=== PATIENT | female | born 1945 | race African-American/Black ===

== ENCOUNTER 2018-07-29 08:33 | Inpatient (IN) | payer MEDICARE, MEDICAID ==
[~2018-07-29] VITALS: Ht 162.6 cm; Wt 73.9 kg
[2018-07-29] MEDS ORDERED: SODIUM CHLORIDE 0.9% 1,000 ML IV ONE ×2 (08:59→18:30)
[2018-07-29 09:54] LABS: BASOPHILS % 0.4 % (0.0-2.0); EOSINOPHILS % 0.2 % (0.0-5.0); HEMATOCRIT. 23.2 % (36.0-48.0); HEMOGLOBIN. 7.8 g/dL (12.0-16.0); LYMPHOCYTES % 15.5 % (20.0-50.0); MEAN CORPUSCULAR HEMOGLOBIN 30.1 pg (28.0-32.0); MEAN PLATELET VOLUME 8.2 fl (7.4-10.4); MONOCYTES % 4.6 % (2.0-8.0); NEUTROPHILS % 79.3 % (40.0-76.0); PLATELET 221 x1000/uL (130-400); RED CELL DISTRIBUTION WIDTH 14.4 % (11.6-14.6)
[2018-07-29 09:59] LABS: INR 1.1; PROTHROMBIN TIME 11.2 sec (9.1-11.1)
[2018-07-29 10:10] LABS: CHLORIDE 112 mEq/L (98-107)
[2018-07-29] MEDS ORDERED: ISOS20TA57 MT (15:35)
[2018-07-29] MEDS ORDERED: METF-414 MT (15:35)
[2018-07-29] MEDS ORDERED: ATOR40TA70 MT (15:35)
[2018-07-29 15:57] VITALS: BP 120/59
[2018-07-29 16:00] VITALS: BP_SYST 102; BP_SYST 110; BP_SYST 111; BP_DIAS 44; BP_DIAS 49; BP_DIAS 51
[2018-07-29] MEDS ORDERED: DEXTROSE 50% WATER 50ML SYRINGE IV PRN (16:45)
[2018-07-29] MEDS ORDERED: HEPARIN 5000 UNITS/ML VIAL SUBCUT SCH (17:00)
[2018-07-29] MEDS: BLOOD SUGAR DIAGNOSTIC STRIP TEST SCH ×2 (17:19→20:19)
[2018-07-29] MEDS: INSULIN LISPRO 100 UNITS/ML SUBCUT SCH ×2 (17:24→20:20)
[2018-07-29] MEDS ORDERED: ACETAMINOPHEN 325MG TABLET PO PRN (17:45)
[2018-07-29] MEDS: PANTOPRAZOLE 40MG DR TABLET PO SCH (18:51)
[2018-07-29 20:00] VITALS: BP_SYST 104; BP_SYST 105; BP_SYST 114; BP_DIAS 32; BP_DIAS 42; BP_DIAS 43
[2018-07-29] MEDS: ATORVASTATIN CALCIUM 40MG TABLET PO SCH (20:19)
[2018-07-29] MEDS: SODIUM CHLORIDE 0.9% INJ 3ML FLUSH IVF SCH (20:20)
[2018-07-29] MEDS: NITROGLYCERIN 0.4MG TABLET SL SL PRN (20:43)
[2018-07-29] MEDS: CEFTRIAXONE 1 G PREMIX 50 ML IV SCH (20:43)
[2018-07-29] MEDS ORDERED: MORPHINE SULFATE 10 MG/ML CPJ IV ONE (21:00)
[2018-07-29] MEDS: ONDANSETRON HCL 4MG/2ML INJ IV PRN (21:04)
[2018-07-29 23:16] LABS: HEMATOCRIT 20.2 % (36.0-48.0); HEMOGLOBIN 6.8 g/dL (12.0-16.0)
[2018-07-30] VITALS (14 sets, daily range): BP systolic 91–128; BP diastolic 48–84
[2018-07-30] MEDS: ONDANSETRON HCL 4MG/2ML INJ IV PRN (03:33)
[2018-07-30] MEDS: NITROGLYCERIN 0.4MG TABLET SL SL PRN (03:46)
[2018-07-30] MEDS: SODIUM CHLORIDE 0.9% INJ 3ML FLUSH IVF SCH ×3 (06:00→21:14)
[2018-07-30 06:30] LABS: BASOPHILS % 0.2 % (0.0-2.0); EOSINOPHILS % 0.2 % (0.0-5.0); LYMPHOCYTES % 12.6 % (20.0-50.0); MEAN CORPUSCULAR HEMOGLOBIN 31.3 pg (28.0-32.0); MEAN CORPUSCULAR VOLUME 89.8 fL (81.0-99.0); MEAN PLATELET VOLUME 8.8 fl (7.4-10.4); MONOCYTES % 6.1 % (2.0-8.0); NEUTROPHILS % 80.9 % (40.0-76.0); PLATELET 184 x1000/uL (130-400); RED BLOOD CELL COUNT 2.12 mill/uL (4.2-5.4); RED CELL DISTRIBUTION WIDTH 14.9 % (11.6-14.6)
[2018-07-30 06:42] LABS: HEMOGLOBIN. 6.6 g/dL (12.0-16.0)
[2018-07-30 07:32] LABS: FOLIC ACID (FOLATE) SERUM 7.2 ng/mL (>5.38)
[2018-07-30] MEDS: BLOOD SUGAR DIAGNOSTIC STRIP TEST SCH ×4 (07:40→21:14)
[2018-07-30] MEDS: INSULIN LISPRO 100 UNITS/ML SUBCUT SCH ×4 (08:08→21:00)
[2018-07-30] MEDS: ASPIRIN 81MG TABLET PO SCH (08:36)
[2018-07-30] MEDS: PANTOPRAZOLE 40MG DR TABLET PO SCH (10:02)
[2018-07-30 13:16] LABS: HEMATOCRIT 23.1 % (36.0-48.0); HEMOGLOBIN 7.9 g/dL (12.0-16.0)
[2018-07-30] MEDS: ATORVASTATIN CALCIUM 40MG TABLET PO SCH (21:13)
[2018-07-30] MEDS: CEFTRIAXONE 1 G PREMIX 50 ML IV SCH (21:13)
[2018-07-30 21:29] LABS: HEMATOCRIT 28.4 % (36.0-48.0); HEMOGLOBIN 9.5 g/dL (12.0-16.0)
[2018-07-31] VITALS (10 sets, daily range): BP systolic 121–148; BP diastolic 69–82
[2018-07-31] MEDS: METOPROLOL TARTRATE 25MG TABLET PO SCH ×3 (01:04→21:00)
[2018-07-31] MEDS: SODIUM CHLORIDE 0.9% INJ 3ML FLUSH IVF SCH ×2 (06:00→13:49)
[2018-07-31 06:17] LABS: BASOPHILS % 0.3 % (0.0-2.0); EOSINOPHILS % 0.3 % (0.0-5.0); HEMOGLOBIN. 9.9 g/dL (12.0-16.0); LYMPHOCYTES % 11.7 % (20.0-50.0); MEAN CORPUSCULAR HEMOGLOBIN 29.9 pg (28.0-32.0); MEAN CORPUSCULAR VOLUME 87.9 fL (81.0-99.0); MEAN PLATELET VOLUME 9.2 fl (7.4-10.4); MONOCYTES % 12.6 % (2.0-8.0); NEUTROPHILS % 75.1 % (40.0-76.0); PLATELET 148 x1000/uL (130-400); RED CELL DISTRIBUTION WIDTH 16.6 % (11.6-14.6)
[2018-07-31] MEDS ORDERED: NITROGLYCERIN 0.4MG TABLET SL SL PRN (07:15)
[2018-07-31] MEDS: INSULIN LISPRO 100 UNITS/ML SUBCUT SCH ×4 (07:20→21:00)
[2018-07-31] MEDS: BLOOD SUGAR DIAGNOSTIC STRIP TEST SCH ×4 (07:29→21:00)
[2018-07-31] MEDS ORDERED: ISOSORBIDE MONONITRATE 30MG TABLET SR 24HR PO SCH (09:00)
[2018-07-31] MEDS: FAMOTIDINE 20MG TABLET PO SCH (09:31)
[2018-07-31] MEDS: ASPIRIN 81MG TABLET PO SCH (09:32)
[2018-07-31] MEDS ORDERED: FUROSEMIDE 40MG/4ML VIAL IVP SCH (10:15)
[2018-07-31] MEDS: IPRATROPIUM/ALBUTEROL 0.5-3(2.5)MG/3ML NEB INH PRN ×2 (10:25→12:44)
[2018-07-31] MEDS: NITROGLYCERIN OINT 1GM/INCH UDPKT TD SCH (14:00)
[2018-08-01] VITALS (12 sets, daily range): BP systolic 107–141; BP diastolic 60–89
[2018-08-01] MEDS: ATORVASTATIN CALCIUM 40MG TABLET PO SCH ×2 (06:12→20:46)
[2018-08-01] MEDS: SODIUM CHLORIDE 0.9% INJ 3ML FLUSH IVF SCH ×4 (06:13→20:55)
[2018-08-01] MEDS: CEFTRIAXONE 1 G PREMIX 50 ML IV SCH ×2 (06:13→20:46)
[2018-08-01] MEDS: NITROGLYCERIN OINT 1GM/INCH UDPKT TD SCH ×4 (06:14→20:47)
[2018-08-01] MEDS: BLOOD SUGAR DIAGNOSTIC STRIP TEST SCH ×4 (06:15→20:47)
[2018-08-01] MEDS: INSULIN LISPRO 100 UNITS/ML SUBCUT SCH ×4 (06:34→20:49)
[2018-08-01 07:01] LABS: HEMATOCRIT. 28.1 % (36.0-48.0); HEMOGLOBIN. 9.4 g/dL (12.0-16.0); MEAN CORPUSCULAR HEMOGLOBIN 29.6 pg (28.0-32.0); MEAN CORPUSCULAR VOLUME 88.6 fL (81.0-99.0); MEAN PLATELET VOLUME 8.9 fl (7.4-10.4); PLATELET 147 x1000/uL (130-400); RED BLOOD CELL COUNT 3.17 mill/uL (4.2-5.4)
[2018-08-01] MEDS: ASPIRIN 81MG TABLET PO SCH (08:46)
[2018-08-01] MEDS: FAMOTIDINE 20MG TABLET PO SCH (08:47)
[2018-08-01] MEDS: FUROSEMIDE 40MG/4ML VIAL IVP SCH (08:47)
[2018-08-01] MEDS: METOPROLOL TARTRATE 25MG TABLET PO SCH ×2 (08:47→20:47)
[2018-08-01 08:58] LABS: BG BASE EXCESS -1.9 mmol/L (-2.0-2.0); BG CARBOXYHEMOGLOBIN 0.3 % (0.5-1.5); BG DEOXYHEMOGLOBIN 4.6 % (0.0-5.0); BG FRACTION INSPIRED OXYGEN 36; BG HCO3 ACT 21.4 mmol/L (22.0-26.0); BG METHEMOGLOBIN 0.3 % (0.0-1.5); BG OXYGEN SATURATION 95.4 % (92.0-98.5); BG OXYHEMOGLOBIN 94.8 % (94.0-97.0); BG PCO2 30.9 mmHg (35.0-45.0); BG PH 7.458 (7.350-7.450); BG PO2 81.3 mmHg (75.0-100.0); BG SAMPLE SITE RIGHT BRACHIAL; BG TOTAL HEMOGLOBIN 9.4 g/dL (12.0-18.0); BG VENT MODE NASAL CANNULA
[2018-08-01 10:07] LABS: ALBUMIN 2.7 g/dL (2.9-4.4); ALPHA-1-GLOBULIN 0.2 g/dL (0.0-0.4); ALPHA-2-GLOBULIN 0.6 g/dL (0.4-1.0); BETA GLOBULIN 0.9 g/dL (0.7-1.3); GLOBULIN TOTAL 2.8 g/dL (2.2-3.9); M-SPIKE Not Observed g/dL (Not Observed); TOTAL PROTEIN SERUM 5.5 g/dL (6.0-8.5)
[2018-08-01 13:29] LABS: PLATELET ESTIMATE NORMAL
[2018-08-02] VITALS (11 sets, daily range): BP systolic 118–157; BP diastolic 60–83
[2018-08-02] MEDS: SODIUM CHLORIDE 0.9% INJ 3ML FLUSH IVF SCH ×3 (05:52→22:24)
[2018-08-02] MEDS: NITROGLYCERIN OINT 1GM/INCH UDPKT TD SCH ×3 (05:52→22:25)
[2018-08-02] MEDS: BLOOD SUGAR DIAGNOSTIC STRIP TEST SCH ×4 (05:53→20:48)
[2018-08-02] MEDS: INSULIN LISPRO 100 UNITS/ML SUBCUT SCH ×4 (05:54→20:53)
[2018-08-02 07:13] LABS: BASOPHILS % 0.4 % (0.0-2.0); EOSINOPHILS % 2.1 % (0.0-5.0); HEMATOCRIT. 27.3 % (36.0-48.0); HEMOGLOBIN. 9.1 g/dL (12.0-16.0); LYMPHOCYTES % 16.7 % (20.0-50.0); MEAN CORPUSCULAR HEMOGLOBIN 29.7 pg (28.0-32.0); MEAN PLATELET VOLUME 9.3 fl (7.4-10.4); NEUTROPHILS % 66.8 % (40.0-76.0); PLATELET 147 x1000/uL (130-400); RED BLOOD CELL COUNT 3.07 mill/uL (4.2-5.4)
[2018-08-02 07:39] LABS: PHOSPHORUS 3.1 mg/dL (2.5-4.9)
[2018-08-02] MEDS: ASPIRIN 81MG TABLET PO SCH (08:31)
[2018-08-02] MEDS: METOPROLOL TARTRATE 25MG TABLET PO SCH ×2 (08:31→20:29)
[2018-08-02] MEDS: FUROSEMIDE 40MG/4ML VIAL IVP SCH (08:31)
[2018-08-02] MEDS: FAMOTIDINE 20MG TABLET PO SCH (08:31)
[2018-08-02] MEDS ORDERED: LIDOCAINE HCL 1% 20ML VIAL (Pyxis) INJ ONE (12:32)
[2018-08-02] MEDS ORDERED: IODIXANOL 320MG/ML 100 ML BOTTLE IV ONE (12:33)
[2018-08-02] MEDS ORDERED: MIDAZOLAM HCL 2 MG/2 ML VIAL ONE (12:37)
[2018-08-02] MEDS ORDERED: FENTANYL CITRATE/PF 50MCG/ML 2ML VIAL ONE (12:37)
[2018-08-02] MEDS ORDERED: POTASSIUM CHLORIDE 20MEQ TABLET SR PO NR (14:00)
[2018-08-02] MEDS ORDERED: NICARDIPINE 100MCG/ML 10ML VIAL (CATH LAB) IV ONE (14:56)
[2018-08-02] MEDS ORDERED: NITROGLYCERIN 50MCG/ML 10ML VIAL (CATH LAB) IV ONE (14:56)
[2018-08-02] MEDS ORDERED: HEPARIN SODIUM 1,000 UNIT/1ML VIAL IV ONE (15:07)
[2018-08-02] MEDS: ATORVASTATIN CALCIUM 40MG TABLET PO SCH (20:29)
[2018-08-02] MEDS: CEFTRIAXONE 1 G PREMIX 50 ML IV SCH (22:25)
[2018-08-03] VITALS (16 sets, daily range): BP systolic 111–148; BP diastolic 60–79
[2018-08-03] MEDS: NITROGLYCERIN OINT 1GM/INCH UDPKT TD SCH ×3 (06:10→23:16)
[2018-08-03] MEDS: SODIUM CHLORIDE 0.9% INJ 3ML FLUSH IVF SCH ×3 (06:10→22:00)
[2018-08-03] MEDS: BLOOD SUGAR DIAGNOSTIC STRIP TEST SCH ×4 (06:10→20:23)
[2018-08-03] MEDS: INSULIN LISPRO 100 UNITS/ML SUBCUT SCH ×4 (07:20→20:21)
[2018-08-03] MEDS ORDERED: IOHEXOL-300 100 ML BOTTLE ONE (08:04)
[2018-08-03] MEDS ORDERED: IODIXANOL 320MG/ML 200ML BOTTLE ONE (08:04)
[2018-08-03] MEDS ORDERED: LIDOCAINE HCL 1% 20ML VIAL (Pyxis) INJ ONE (08:04)
[2018-08-03 08:10] LABS: BASOPHILS % 0.4 % (0.0-2.0); EOSINOPHILS % 2.8 % (0.0-5.0); HEMATOCRIT. 34.8 % (36.0-48.0); HEMOGLOBIN. 11.7 g/dL (12.0-16.0); MEAN CORPUSCULAR HEMOGLOBIN 29.9 pg (28.0-32.0); MEAN CORPUSCULAR VOLUME 88.5 fL (81.0-99.0); MEAN PLATELET VOLUME 8.6 fl (7.4-10.4); MONOCYTES % 14.2 % (2.0-8.0); NEUTROPHILS % 70.6 % (40.0-76.0); PLATELET 156 x1000/uL (130-400); RED BLOOD CELL COUNT 3.93 mill/uL (4.2-5.4); RED CELL DISTRIBUTION WIDTH 15.9 % (11.6-14.6)
[2018-08-03 08:17] LABS: PHOSPHORUS 3.2 mg/dL (2.5-4.9)
[2018-08-03] MEDS: FUROSEMIDE 40MG/4ML VIAL IVP SCH (08:23)
[2018-08-03] MEDS: METOPROLOL TARTRATE 25MG TABLET PO SCH ×2 (08:24→20:23)
[2018-08-03] MEDS: ASPIRIN 81MG TABLET PO SCH (08:24)
[2018-08-03] MEDS: FAMOTIDINE 20MG TABLET PO SCH (08:24)
[2018-08-03] MEDS ORDERED: FENTANYL CITRATE/PF 50MCG/ML 2ML VIAL ONE (08:26)
[2018-08-03] MEDS ORDERED: MIDAZOLAM HCL 2 MG/2 ML VIAL ONE (08:26)
[2018-08-03] MEDS ORDERED: ASPIRIN 325MG TABLET ONE (10:42)
[2018-08-03] MEDS ORDERED: CLOPIDOGREL 75MG TABLET ONE (10:43)
[2018-08-03] MEDS ORDERED: ONDANSETRON HCL 4MG/2ML INJ IV PRN (10:45)
[2018-08-03] MEDS ORDERED: ACETAMINOPHEN 325MG TABLET PO PRN (10:45)
[2018-08-03] MEDS ORDERED: ATROPINE SULFATE 1MG/10ML SYR IV PRN (10:45)
[2018-08-03] MEDS ORDERED: HEPARIN SODIUM 1,000 UNIT/1ML VIAL IV ONE (15:07)
[2018-08-03] MEDS ORDERED: NITROGLYCERIN 50MCG/ML 10ML VIAL (CATH LAB) IV ONE (15:08)
[2018-08-03] MEDS ORDERED: NICARDIPINE 100MCG/ML 10ML VIAL (CATH LAB) IV ONE (15:08)
[2018-08-03] MEDS: DOCUSATE SODIUM 100MG CAPSULE PO PRN (17:44)
[2018-08-03] MEDS: ATORVASTATIN CALCIUM 40MG TABLET PO SCH (20:21)
[2018-08-03] MEDS: CEFTRIAXONE 1 G PREMIX 50 ML IV SCH (20:23)
[2018-08-03] MEDS ORDERED: SODIUM CHLORIDE 0.45% 1,000 ML IV ONE (21:00)
[2018-08-04] VITALS (10 sets, daily range): BP systolic 111–135; BP diastolic 60–74
[2018-08-04] MEDS: NITROGLYCERIN OINT 1GM/INCH UDPKT TD SCH ×2 (06:15→13:55)
[2018-08-04] MEDS: SODIUM CHLORIDE 0.9% INJ 3ML FLUSH IVF SCH ×2 (06:16→11:59)
[2018-08-04] MEDS: BLOOD SUGAR DIAGNOSTIC STRIP TEST SCH ×3 (06:16→16:50)
[2018-08-04] MEDS: INSULIN LISPRO 100 UNITS/ML SUBCUT SCH ×3 (06:59→17:04)
[2018-08-04] MEDS: FAMOTIDINE 20MG TABLET PO SCH (08:14)
[2018-08-04] MEDS: DOCUSATE SODIUM 100MG CAPSULE PO PRN (08:14)
[2018-08-04] MEDS: ASPIRIN 81MG TABLET PO SCH (08:14)
[2018-08-04] MEDS: FUROSEMIDE 40MG/4ML VIAL IVP SCH (08:14)
[2018-08-04] MEDS: METOPROLOL TARTRATE 25MG TABLET PO SCH (08:14)
[2018-08-04 08:25] LABS: BASOPHILS % 0.3 % (0.0-2.0); EOSINOPHILS % 2.3 % (0.0-5.0); HEMATOCRIT. 27.2 % (36.0-48.0); HEMOGLOBIN. 9.4 g/dL (12.0-16.0); LYMPHOCYTES % 11.4 % (20.0-50.0); MEAN CORPUSCULAR HEMOGLOBIN 30.1 pg (28.0-32.0); MEAN CORPUSCULAR VOLUME 87.7 fL (81.0-99.0); MEAN PLATELET VOLUME 8.8 fl (7.4-10.4); MONOCYTES % 12.9 % (2.0-8.0); NEUTROPHILS % 73.1 % (40.0-76.0); PLATELET 144 x1000/uL (130-400)
[2018-08-04 08:43] LABS: PHOSPHORUS 3.6 mg/dL (2.5-4.9)
[2018-08-04] MEDS ORDERED: CLOPIDOGREL 75MG TABLET PO SCH (08:45)
[2018-08-04] MEDS ORDERED: CARVEDILOL 3.125 MG TABLET PO SCH (09:00)
[2018-08-05] MEDS ORDERED: FUROSEMIDE 40MG TABLET PO SCH (09:00)
[2018-08-05] MEDS ORDERED: CLOPIDOGREL 75MG TABLET PO SCH (09:00)
== END 2018-08-04 17:45 | disposition home or self-care (01) | DRG 215 ==
LOC: ER 08:33 → 7WST 10:52 → ENRESERV 13:36 → 3WST 07-30 23:40
PROVIDERS: ADMIT Ophthalmology; ATTEND Ophthalmology
PROC: 30233N1 Transfusion of Nonautologous Red Blood Cells into Peripheral Vein, Percutaneous Approach (ICD-10-PCS; 2018-07-30)
PROC: 4A023N7 Measurement of Cardiac Sampling and Pressure, Left Heart, Percutaneous Approach (ICD-10-PCS; principal; 2018-08-02)
PROC: B211YZZ Fluoroscopy of Multiple Coronary Arteries using Other Contrast (ICD-10-PCS; 2018-08-02)
PROC: 02HA3RJ Insertion of Short-term External Heart Assist System into Heart, Intraoperative, Percutaneous Approach (ICD-10-PCS; 2018-08-03)
PROC: X2C0361 Extirpation of Matter from Coronary Artery, One Artery using Orbital Atherectomy Technology, Percutaneous Approach, New Technology Group 1 (ICD-10-PCS; 2018-08-03)
PROC: 027034Z Dilation of Coronary Artery, One Artery with Drug-eluting Intraluminal Device, Percutaneous Approach (ICD-10-PCS; 2018-08-03)
PROC: 5A0221D Assistance with Cardiac Output using Impeller Pump, Continuous (ICD-10-PCS; 2018-08-03)
PROC: B240ZZ3 Ultrasonography of Single Coronary Artery, Intravascular (ICD-10-PCS; 2018-08-03)
DX: I21.4 Non-ST elevation (NSTEMI) myocardial infarction (principal); I50.23 Acute on chronic systolic (congestive) heart failure; N17.9 Acute kidney failure, unspecified; E87.2 Acidosis; I13.0 Hypertensive heart and chronic kidney disease with heart failure and stage 1 through stage 4 chronic kidney disease, or unspecified chronic kidney disease; E78.5 Hyperlipidemia, unspecified; E87.6 Hypokalemia; I25.10 Atherosclerotic heart disease of native coronary artery without angina pectoris; E78.00 Pure hypercholesterolemia, unspecified; I48.0 Paroxysmal atrial fibrillation; I95.9 Hypotension, unspecified; D50.9 Iron deficiency anemia, unspecified; E11.22 Type 2 diabetes mellitus with diabetic chronic kidney disease; E86.1 Hypovolemia; F03.90 Unspecified dementia, unspecified severity, without behavioral disturbance, psychotic disturbance, mood disturbance, and anxiety; I25.5 Ischemic cardiomyopathy; I34.0 Nonrheumatic mitral (valve) insufficiency; R79.1 Abnormal coagulation profile; N18.3 Chronic kidney disease, stage 3 (moderate); D63.8 Anemia in other chronic diseases classified elsewhere; I25.2 Old myocardial infarction; Z79.4 Long term (current) use of insulin; Z79.82 Long term (current) use of aspirin; Z79.899 Other long term (current) drug therapy; Z88.0 Allergy status to penicillin; Z90.710 Acquired absence of both cervix and uterus; Z95.1 Presence of aortocoronary bypass graft; Z86.73 Personal history of transient ischemic attack (TIA), and cerebral infarction without residual deficits; Z79.02 Long term (current) use of antithrombotics/antiplatelets; Z95.5 Presence of coronary angioplasty implant and graft; Z98.49 Cataract extraction status, unspecified eye; Z82.49 Family history of ischemic heart disease and other diseases of the circulatory system; Z83.3 Family history of diabetes mellitus
CPT/HCPCS: 33990; 36415; 36600; 71045; 76770; 80048; 80061; 82270; 82375; 82550; 82607; 82728; 82746; 82805; 82962; 83036; 83540; 83550; 83605; 83735; 83880; 84100; 84155; 84165; 84443; 84484; 85014; 85018; 85347; 85379; 86850; 86900; 86920; 92933; 92978; 93005; 93306; 93454; 93458; 93970; 94640; 96360; 96361; 96372; 97162; 97166; 99285; C1725; C1726; C1753; C1760; C1769; C1874; C1887; C1893; J0696; J1644; J1815; J1940; J2250; J2405; J3010; J3490; J7030; J7040; J7050; J7060; J7620; P9016; P9021; Q9967

== ENCOUNTER 2018-08-14 06:01 | Inpatient (IN) | payer MEDICARE, MEDICAID ==
[~2018-08-14] VITALS: Ht 157.5 cm; Wt 72.7 kg
[2018-08-14] MEDS: IPRATROPIUM/ALBUTEROL 0.5-3(2.5)MG/3ML NEB HHN SCH (05:45)
[~2018-08-14 06:01] MED LIST: ATOR40TA70 MT; METF-414 MT
[2018-08-14] MEDS ORDERED: ALBUTEROL (0.083%) 2.5MG/3ML NEB HHN STA (06:15)
[2018-08-14] MEDS ORDERED: IPRATROPIUM BROMIDE (0.02%) 0.5MG/2.5ML NEB HHN STA (06:15)
[2018-08-14] MEDS ORDERED: METHYLPREDNISOLONE SOD SUCC 125 MG/2 ML VIAL IV ONE (06:30)
[2018-08-14] MEDS ORDERED: FUROSEMIDE 40MG/4ML VIAL IVP ONE (06:30)
[2018-08-14] MEDS ORDERED: LEVOFLOXACIN 500MG PREMIX 100 ML IV ONE (07:30)
[2018-08-14] MEDS ORDERED: VANCOMYCIN 1 G PREMIX 200 ML IV SCH (07:30)
[2018-08-14 07:59] LABS: CLARITY URINE CLEAR (CLEAR); COLOR URINE YELLOW (YELLOW); KETONES URINE NEGATIVE (NEGATIVE); LEUKOCYTE ESTERASE URINE NEGATIVE (NEGATIVE); NITRITE URINE NEGATIVE (NEGATIVE); OCCULT BLOOD URINE NEGATIVE (NEGATIVE); PH URINE 5.5 (4.5-8.0); PROTEIN URINE NEGATIVE (NEGATIVE); SPECIFIC GRAVITY URINE 1.008 (1.005-1.030); UROBILINOGEN URINE 0.2 E.U./dL (0.2-1.0)
[2018-08-14 08:26] LABS: BG BASE EXCESS -3.2 mmol/L (-2.0-2.0); BG BILEVEL POS AIRWAY PRESSURE ST=15/5; BG CARBOXYHEMOGLOBIN 0.6 % (0.5-1.5); BG FRACTION INSPIRED OXYGEN 35; BG HCO3 ACT 20.3 mmol/L (22.0-26.0); BG METHEMOGLOBIN 0.2 % (0.0-1.5); BG OXYGEN SATURATION 92.9 % (92.0-98.5); BG OXYHEMOGLOBIN 92.2 % (94.0-97.0); BG PCO2 31.2 mmHg (35.0-45.0); BG PH 7.431 (7.350-7.450); BG PO2 69.7 mmHg (75.0-100.0); BG PRESSURE SUPPORT 10; BG SAMPLE SITE RIGHT BRACHIAL; BG TOTAL HEMOGLOBIN 10.7 g/dL (12.0-18.0); BG VENT MODE MASK - BIPAP; BG VENT RATE 16 set
[2018-08-14 08:46] LABS: CHLORIDE 110 mEq/L (98-107)
[2018-08-14 08:48] LABS: INR 1.1; PROTHROMBIN TIME 11.4 sec (9.1-11.1)
[2018-08-14 08:51] LABS: BASOPHILS % 0.6 % (0.0-2.0); EOSINOPHILS % 1.8 % (0.0-5.0); HEMATOCRIT. 33.7 % (36.0-48.0); HEMOGLOBIN. 10.9 g/dL (12.0-16.0); LYMPHOCYTES % 10.7 % (20.0-50.0); MEAN CORPUSCULAR HEMOGLOBIN 30.2 pg (28.0-32.0); MEAN CORPUSCULAR VOLUME 93.3 fL (81.0-99.0); MEAN PLATELET VOLUME 8.2 fl (7.4-10.4); MONOCYTES % 7.9 % (2.0-8.0); PLATELET 338 x1000/uL (130-400); RED BLOOD CELL COUNT 3.61 mill/uL (4.2-5.4); RED CELL DISTRIBUTION WIDTH 19.5 % (11.6-14.6)
[2018-08-14 14:37] VITALS: BP 141/75
[2018-08-14] MEDS ORDERED: IPRATROPIUM/ALBUTEROL 0.5-3(2.5)MG/3ML NEB HHN PRN (16:00)
[2018-08-14] MEDS: METHYLPREDNISOLONE SOD SUCC 40 MG/ML VIAL IV SCH (17:12)
[2018-08-14] MEDS ORDERED: FAMO-135 MT (17:26)
[2018-08-14] MEDS ORDERED: ASA5EC MT (17:26)
[2018-08-14] MEDS ORDERED: ASCO-339 MT (17:26)
[2018-08-14] MEDS ORDERED: LIP40 MT (17:26)
[2018-08-14] MEDS ORDERED: FERR325T6 MT (17:26)
[2018-08-14] MEDS ORDERED: METF-414 MT (17:26)
[2018-08-14] MEDS ORDERED: ISOS20TA57 MT (17:26)
[2018-08-14] MEDS ORDERED: CLOP75TA16 MT (17:26)
[2018-08-14] MEDS ORDERED: AMLO2.5T2 MT (17:26)
[2018-08-14] MEDS ORDERED: ISOS30TA6 MT (17:26)
[2018-08-14] MEDS ORDERED: COR3 MT (17:26)
[2018-08-14] MEDS ORDERED: ATOR40TA70 MT (17:26)
[2018-08-14] MEDS ORDERED: PNEUMOCOCCAL 23-VAL P-SAC VAC 0.5 ML IM ONE (17:30)
[2018-08-14] MEDS ORDERED: INFLUENZA VIRUS VACCINE(AFLURIA) 0.5ML SYR IM ONE (17:30)
[2018-08-14] MEDS ORDERED: METO-539 MT (17:33)
[2018-08-14] MEDS ORDERED: FUROSEMIDE 100MG/10ML VIAL IVP NR (18:30)
[2018-08-14] MEDS: ASPIRIN 81MG TABLET PO SCH (19:05)
[2018-08-14] MEDS: CLOPIDOGREL 75MG TABLET PO SCH (19:05)
[2018-08-14] MEDS: ATORVASTATIN CALCIUM 40MG TABLET PO SCH (19:05)
[2018-08-14] MEDS: ISOSORBIDE MONONITRATE 60MG TABLET SR 24HR PO SCH (19:07)
[2018-08-14 20:00] VITALS: BP 132/67
[2018-08-14] MEDS: BLOOD SUGAR DIAGNOSTIC STRIP TEST SCH (21:12)
[2018-08-14] MEDS ORDERED: DEXTROSE 50% WATER 50ML SYRINGE IV PRN (21:15)
[2018-08-14] MEDS: INSULIN LISPRO 100 UNITS/ML SUBCUT SCH (21:30)
[2018-08-14] MEDS: SODIUM CHLORIDE 0.9% INJ 3ML FLUSH IVF SCH (21:31)
[2018-08-14 22:00] VITALS: BP 127/62
[2018-08-15] VITALS (11 sets, daily range): BP systolic 107–139; BP diastolic 51–83
[2018-08-15] MEDS: METHYLPREDNISOLONE SOD SUCC 40 MG/ML VIAL IV SCH ×3 (03:04→16:30)
[2018-08-15] MEDS: SODIUM CHLORIDE 0.9% INJ 3ML FLUSH IVF SCH ×3 (06:23→21:09)
[2018-08-15] MEDS: PANTOPRAZOLE 40MG DR TABLET PO SCH (06:24)
[2018-08-15] MEDS: FUROSEMIDE 40MG/4ML VIAL IVP SCH ×2 (06:47→17:42)
[2018-08-15] MEDS: BLOOD SUGAR DIAGNOSTIC STRIP TEST SCH ×4 (06:50→21:09)
[2018-08-15 06:58] LABS: HEMATOCRIT. 26.8 % (36.0-48.0); HEMOGLOBIN. 8.9 g/dL (12.0-16.0); MEAN CORPUSCULAR HEMOGLOBIN 30.7 pg (28.0-32.0); MEAN CORPUSCULAR VOLUME 92.4 fL (81.0-99.0); MEAN PLATELET VOLUME 8.3 fl (7.4-10.4); PLATELET 282 x1000/uL (130-400); RED CELL DISTRIBUTION WIDTH 18.6 % (11.6-14.6)
[2018-08-15] MEDS: INSULIN LISPRO 100 UNITS/ML SUBCUT SCH ×3 (07:13→17:42)
[2018-08-15] MEDS: CLOPIDOGREL 75MG TABLET PO SCH (08:29)
[2018-08-15] MEDS: ASPIRIN 81MG TABLET PO SCH (08:30)
[2018-08-15] MEDS: ISOSORBIDE MONONITRATE 60MG TABLET SR 24HR PO SCH (08:30)
[2018-08-15 08:58] LABS: BG BASE EXCESS -1.7 mmol/L (-2.0-2.0); BG CARBOXYHEMOGLOBIN 0.6 % (0.5-1.5); BG DEOXYHEMOGLOBIN 3.8 % (0.0-5.0); BG FRACTION INSPIRED OXYGEN 28; BG HCO3 ACT 21.6 mmol/L (22.0-26.0); BG METHEMOGLOBIN 0.3 % (0.0-1.5); BG OXYGEN SATURATION 96.2 % (92.0-98.5); BG OXYHEMOGLOBIN 95.3 % (94.0-97.0); BG PCO2 30.8 mmHg (35.0-45.0); BG PH 7.463 (7.350-7.450); BG SAMPLE SITE LEFT RADIAL; BG TOTAL HEMOGLOBIN 9.4 g/dL (12.0-18.0); BG VENT MODE NASAL CANNULA
[2018-08-15] MEDS ORDERED: ENOXAPARIN 40MG/0.4ML SYR SUBCUT SCH (09:00)
[2018-08-15] MEDS: IPRATROPIUM/ALBUTEROL 0.5-3(2.5)MG/3ML NEB HHN SCH ×5 (09:50→23:45)
[2018-08-15] MEDS ORDERED: INSULIN LISPRO 100 UNITS/ML SUBCUT NR ×2 (12:15→22:30)
[2018-08-15 16:08] LABS: PLATELET ESTIMATE NORMAL
[2018-08-15 16:58] LABS: HEMATOCRIT 26.7 % (36.0-48.0); HEMOGLOBIN 8.7 g/dL (12.0-16.0)
[2018-08-15] MEDS: ATORVASTATIN CALCIUM 40MG TABLET PO SCH (21:09)
[2018-08-15] MEDS ORDERED: INSULIN LISPRO 100 UNITS/ML SUBCUT ONE (22:00)
[2018-08-15] MEDS ORDERED: DEXTROSE 50% WATER 50ML SYRINGE IV PRN (22:00)
[2018-08-15] MEDS ORDERED: INSULIN GLARGINE UD 100 UNITS/ML SYR SUBCUT SCH (22:00)
[2018-08-15] MEDS: INSULIN GLARGINE UD 100 UNITS/ML SYR SUBCUT SCH (22:48)
[2018-08-16] VITALS (17 sets, daily range): BP systolic 121–155; BP diastolic 57–89
[2018-08-16] MEDS: METHYLPREDNISOLONE SOD SUCC 40 MG/ML VIAL IV SCH ×3 (00:38→17:20)
[2018-08-16] MEDS: IPRATROPIUM/ALBUTEROL 0.5-3(2.5)MG/3ML NEB HHN SCH ×3 (04:05→19:54)
[2018-08-16] MEDS: PANTOPRAZOLE 40MG DR TABLET PO SCH (06:14)
[2018-08-16] MEDS: FUROSEMIDE 40MG/4ML VIAL IVP SCH ×2 (06:14→17:20)
[2018-08-16] MEDS: BLOOD SUGAR DIAGNOSTIC STRIP TEST SCH ×4 (06:19→21:26)
[2018-08-16] MEDS: SODIUM CHLORIDE 0.9% INJ 3ML FLUSH IVF SCH ×3 (06:20→21:26)
[2018-08-16 06:27] LABS: HEMATOCRIT. 26.1 % (36.0-48.0); HEMOGLOBIN. 8.6 g/dL (12.0-16.0); MEAN CORPUSCULAR HEMOGLOBIN 30.3 pg (28.0-32.0); MEAN CORPUSCULAR VOLUME 92.2 fL (81.0-99.0); MEAN PLATELET VOLUME 8.1 fl (7.4-10.4); PLATELET 302 x1000/uL (130-400); RED BLOOD CELL COUNT 2.83 mill/uL (4.2-5.4); RED CELL DISTRIBUTION WIDTH 18.7 % (11.6-14.6)
[2018-08-16] MEDS ORDERED: BLOOD SUGAR DIAGNOSTIC STRIP TEST SCH (06:50)
[2018-08-16] MEDS: INSULIN LISPRO 100 UNITS/ML SUBCUT SCH ×4 (07:53→21:26)
[2018-08-16] MEDS: ASPIRIN 81MG TABLET PO SCH (08:19)
[2018-08-16] MEDS: ISOSORBIDE MONONITRATE 60MG TABLET SR 24HR PO SCH (08:19)
[2018-08-16] MEDS: CLOPIDOGREL 75MG TABLET PO SCH (08:19)
[2018-08-16] MEDS: INSULIN GLARGINE UD 100 UNITS/ML SYR SUBCUT SCH ×2 (10:05→22:02)
[2018-08-16] MEDS ORDERED: AMIODARONE HCL 900 MG in DEXT 5% WATER 482 ML IV SCH (10:15)
[2018-08-16] MEDS ORDERED: AMIODARONE HCL 150 MG in DEXT 5% WATER 100 ML IV NR (10:15)
[2018-08-16 12:12] LABS: PLATELET ESTIMATE NORMAL
[2018-08-16 19:54] LABS: CLARITY URINE CLEAR (CLEAR); COLOR URINE YELLOW (YELLOW); KETONES URINE NEGATIVE (NEGATIVE); LEUKOCYTE ESTERASE URINE NEGATIVE (NEGATIVE); NITRITE URINE NEGATIVE (NEGATIVE); OCCULT BLOOD URINE NEGATIVE (NEGATIVE); PROTEIN URINE NEGATIVE (NEGATIVE); UROBILINOGEN URINE 0.2 E.U./dL (0.2-1.0)
[2018-08-16] MEDS: ATORVASTATIN CALCIUM 40MG TABLET PO SCH (21:24)
[2018-08-17] VITALS (13 sets, daily range): BP systolic 117–172; BP diastolic 54–82
[2018-08-17] MEDS: IPRATROPIUM/ALBUTEROL 0.5-3(2.5)MG/3ML NEB HHN SCH ×6 (00:52→21:08)
[2018-08-17] MEDS: METHYLPREDNISOLONE SOD SUCC 40 MG/ML VIAL IV SCH ×2 (01:09→09:21)
[2018-08-17 05:46] LABS: HEMATOCRIT. 25.9 % (36.0-48.0); HEMOGLOBIN. 8.7 g/dL (12.0-16.0); MEAN CORPUSCULAR HEMOGLOBIN 30.7 pg (28.0-32.0); MEAN PLATELET VOLUME 8.2 fl (7.4-10.4); PLATELET 290 x1000/uL (130-400); RED BLOOD CELL COUNT 2.84 mill/uL (4.2-5.4); RED CELL DISTRIBUTION WIDTH 18.9 % (11.6-14.6)
[2018-08-17 05:59] LABS: CHLORIDE 101 mEq/L (98-107)
[2018-08-17] MEDS: FUROSEMIDE 40MG/4ML VIAL IVP SCH ×2 (06:12→17:18)
[2018-08-17] MEDS: PANTOPRAZOLE 40MG DR TABLET PO SCH (06:12)
[2018-08-17] MEDS: BLOOD SUGAR DIAGNOSTIC STRIP TEST SCH ×4 (06:13→21:01)
[2018-08-17] MEDS: SODIUM CHLORIDE 0.9% INJ 3ML FLUSH IVF SCH ×3 (06:13→21:02)
[2018-08-17] MEDS: ASPIRIN 81MG TABLET PO SCH (08:07)
[2018-08-17] MEDS: CLOPIDOGREL 75MG TABLET PO SCH (08:07)
[2018-08-17] MEDS: ISOSORBIDE MONONITRATE 60MG TABLET SR 24HR PO SCH (08:07)
[2018-08-17] MEDS: INSULIN LISPRO 100 UNITS/ML SUBCUT SCH ×4 (08:10→20:58)
[2018-08-17] MEDS: INSULIN GLARGINE UD 100 UNITS/ML SYR SUBCUT SCH ×2 (10:41→21:36)
[2018-08-17 12:36] LABS: PLATELET ESTIMATE NORMAL
[2018-08-17] MEDS: AMIODARONE HCL 200 MG TABLET PO SCH ×2 (13:46→20:56)
[2018-08-17] MEDS ORDERED: INSULIN LISPRO 100 UNITS/ML SUBCUT ONE (17:45)
[2018-08-17] MEDS ORDERED: INSULIN LISPRO 100 UNITS/ML SUBCUT NR (17:45)
[2018-08-17] MEDS: ATORVASTATIN CALCIUM 40MG TABLET PO SCH (20:56)
[2018-08-17] MEDS ORDERED: INSULIN GLARGINE UD 100 UNITS/ML SYR SUBCUT SCH (22:00)
[2018-08-18] VITALS (12 sets, daily range): BP systolic 115–151; BP diastolic 55–84
[2018-08-18] MEDS: IPRATROPIUM/ALBUTEROL 0.5-3(2.5)MG/3ML NEB HHN SCH ×6 (00:30→20:20)
[2018-08-18] MEDS ORDERED: AMIODARONE HCL 900 MG in DEXT 5% WATER 482 ML IV PRN ×2 (00:45→11:37)
[2018-08-18] MEDS ORDERED: AMIODARONE HCL 150 MG in DEXT 5% WATER 100 ML IV NR (01:30)
[2018-08-18] MEDS: ENOXAPARIN 30MG/0.3ML SYR SUBCUT SCH (02:35)
[2018-08-18] MEDS: PANTOPRAZOLE 40MG DR TABLET PO SCH (06:27)
[2018-08-18] MEDS: BLOOD SUGAR DIAGNOSTIC STRIP TEST SCH ×4 (06:28→21:01)
[2018-08-18] MEDS: FUROSEMIDE 40MG/4ML VIAL IVP SCH (06:28)
[2018-08-18] MEDS: SODIUM CHLORIDE 0.9% INJ 3ML FLUSH IVF SCH ×3 (06:28→21:02)
[2018-08-18 06:46] LABS: EOSINOPHILS % 0.7 % (0.0-5.0); HEMATOCRIT. 27.5 % (36.0-48.0); HEMOGLOBIN. 9.3 g/dL (12.0-16.0); LYMPHOCYTES % 11.1 % (20.0-50.0); MEAN CORPUSCULAR HEMOGLOBIN 30.5 pg (28.0-32.0); MEAN CORPUSCULAR VOLUME 90.6 fL (81.0-99.0); MEAN PLATELET VOLUME 8.1 fl (7.4-10.4); MONOCYTES % 14.6 % (2.0-8.0); NEUTROPHILS % 73.6 % (40.0-76.0); PLATELET 271 x1000/uL (130-400); RED BLOOD CELL COUNT 3.04 mill/uL (4.2-5.4); RED CELL DISTRIBUTION WIDTH 18.4 % (11.6-14.6)
[2018-08-18] MEDS: INSULIN LISPRO 100 UNITS/ML SUBCUT SCH ×4 (07:11→21:01)
[2018-08-18] MEDS: CLOPIDOGREL 75MG TABLET PO SCH (08:37)
[2018-08-18] MEDS: ISOSORBIDE MONONITRATE 60MG TABLET SR 24HR PO SCH (08:38)
[2018-08-18] MEDS: ASPIRIN 81MG TABLET PO SCH (08:38)
[2018-08-18] MEDS ORDERED: PREDNISONE 20MG TABLET PO SCH (09:00)
[2018-08-18] MEDS: INSULIN GLARGINE UD 100 UNITS/ML SYR SUBCUT SCH (10:21)
[2018-08-18] MEDS ORDERED: POTASSIUM CHLORIDE 20MEQ TABLET SR PO NR (11:00)
[2018-08-18] MEDS: AMIODARONE HCL 200 MG TABLET PO SCH ×2 (12:44→21:00)
[2018-08-18] MEDS: ATORVASTATIN CALCIUM 40MG TABLET PO SCH (21:00)
[2018-08-19] VITALS (10 sets, daily range): BP systolic 108–132; BP diastolic 51–74
[2018-08-19] MEDS: IPRATROPIUM/ALBUTEROL 0.5-3(2.5)MG/3ML NEB HHN SCH ×4 (02:34→16:36)
[2018-08-19] MEDS: PANTOPRAZOLE 40MG DR TABLET PO SCH (06:18)
[2018-08-19] MEDS: SODIUM CHLORIDE 0.9% INJ 3ML FLUSH IVF SCH ×2 (06:19→14:21)
[2018-08-19] MEDS: INSULIN LISPRO 100 UNITS/ML SUBCUT SCH ×2 (06:19→12:49)
[2018-08-19] MEDS: BLOOD SUGAR DIAGNOSTIC STRIP TEST SCH ×2 (06:19→11:29)
[2018-08-19 07:05] LABS: HEMATOCRIT. 28.9 % (36.0-48.0); HEMOGLOBIN. 9.3 g/dL (12.0-16.0); MEAN CORPUSCULAR HEMOGLOBIN 30.4 pg (28.0-32.0); MEAN CORPUSCULAR VOLUME 94.5 fL (81.0-99.0); MEAN PLATELET VOLUME 8.2 fl (7.4-10.4); PLATELET 234 x1000/uL (130-400); RED BLOOD CELL COUNT 3.05 mill/uL (4.2-5.4); RED CELL DISTRIBUTION WIDTH 18.6 % (11.6-14.6)
[2018-08-19] MEDS: AMIODARONE HCL 200 MG TABLET PO SCH (08:27)
[2018-08-19] MEDS: CLOPIDOGREL 75MG TABLET PO SCH (08:27)
[2018-08-19] MEDS: ASPIRIN 81MG TABLET PO SCH (08:27)
[2018-08-19] MEDS: ENOXAPARIN 30MG/0.3ML SYR SUBCUT SCH (08:28)
[2018-08-19] MEDS: ISOSORBIDE MONONITRATE 60MG TABLET SR 24HR PO SCH (08:32)
[2018-08-19] MEDS ORDERED: FUROSEMIDE 40MG/4ML VIAL IVP SCH (09:00)
[2018-08-19] MEDS ORDERED: INSULIN GLARGINE UD 100 UNITS/ML SYR SUBCUT SCH (10:00)
[2018-08-20 10:13] LABS: PLATELET ESTIMATE NORMAL
== END 2018-08-19 17:15 | disposition home or self-care (01) | DRG 291 ==
LOC: ER 06:01 → 3WST 08:08 → EDBEDREQ 08:34 → EDBEDREQTM 08:34 → ENRESERV 13:30
PROVIDERS: ADMIT Ophthalmology; ATTEND Ophthalmology
PROC: 5A09357 Assistance with Respiratory Ventilation, Less than 24 Consecutive Hours, Continuous Positive Airway Pressure (ICD-10-PCS; principal; 2018-08-14)
DX: I13.0 Hypertensive heart and chronic kidney disease with heart failure and stage 1 through stage 4 chronic kidney disease, or unspecified chronic kidney disease (principal); I50.23 Acute on chronic systolic (congestive) heart failure; J96.00 Acute respiratory failure, unspecified whether with hypoxia or hypercapnia; N17.9 Acute kidney failure, unspecified; I47.1 Supraventricular tachycardia; I25.5 Ischemic cardiomyopathy; I25.10 Atherosclerotic heart disease of native coronary artery without angina pectoris; D64.9 Anemia, unspecified; E78.5 Hyperlipidemia, unspecified; E11.22 Type 2 diabetes mellitus with diabetic chronic kidney disease; E11.319 Type 2 diabetes mellitus with unspecified diabetic retinopathy without macular edema; E66.9 Obesity, unspecified; I25.2 Old myocardial infarction; I34.0 Nonrheumatic mitral (valve) insufficiency; I48.0 Paroxysmal atrial fibrillation; N18.9 Chronic kidney disease, unspecified; Z79.02 Long term (current) use of antithrombotics/antiplatelets; Z79.82 Long term (current) use of aspirin; Z79.899 Other long term (current) drug therapy; Z88.0 Allergy status to penicillin; Z90.710 Acquired absence of both cervix and uterus; Z95.5 Presence of coronary angioplasty implant and graft; Z68.29 Body mass index [BMI] 29.0-29.9, adult
CPT/HCPCS: 36415; 36600; 71045; 76770; 80048; 80061; 80076; 82375; 82570; 82805; 82962; 83605; 83735; 83880; 83935; 84100; 84145; 84156; 84300; 84443; 84484; 85014; 85018; 87077; 87186; 93005; 94640; 94660; 96374; 99291; C1893; J0282; J1650; J1815; J1940; J1956; J2920; J2930; J3370; J7050; J7060; J7611; J7620

== ENCOUNTER 2018-10-22 19:23 | Inpatient (IN) | payer MEDICARE, MEDICAID ==
[~2018-10-22] VITALS: Ht 162.6 cm; Wt 61.2 kg
[~2018-10-22 19:23] MED LIST changes: +AMLO2.5T2 MT; +ASA5EC MT; +ASCO-339 MT; +CLOP75TA16 MT; +COR3 MT; +FAMO-135 MT; +FERR325T6 MT; +ISOS20TA57 MT; +ISOS30TA6 MT; +LIP40 MT; +METO-539 MT
[2018-10-22] MEDS ORDERED: ONDANSETRON HCL 4MG/2ML INJ IV STA (19:45)
[2018-10-22 20:22] LABS: BG BASE EXCESS -3.2 mmol/L (-2.0-2.0); BG CARBOXYHEMOGLOBIN 0.1 % (0.5-1.5); BG DEOXYHEMOGLOBIN 3.4 % (0.0-5.0); BG FRACTION INSPIRED OXYGEN 21; BG METHEMOGLOBIN 0.1 % (0.0-1.5); BG OXYGEN SATURATION 96.6 % (92.0-98.5); BG OXYHEMOGLOBIN 96.4 % (94.0-97.0); BG PH 7.396 (7.350-7.450); BG PO2 93.9 mmHg (75.0-100.0); BG SAMPLE SITE RIGHT BRACHIAL; BG TOTAL HEMOGLOBIN 12.1 g/dL (12.0-18.0); BG VENT MODE ROOM AIR
[2018-10-22 21:28] LABS: CLARITY URINE CLEAR (CLEAR); COLOR URINE YELLOW (YELLOW); KETONES URINE NEGATIVE (NEGATIVE); LEUKOCYTE ESTERASE URINE NEGATIVE (NEGATIVE); NITRITE URINE NEGATIVE (NEGATIVE); OCCULT BLOOD URINE NEGATIVE (NEGATIVE); PROTEIN URINE NEGATIVE (NEGATIVE); SPECIFIC GRAVITY URINE 1.013 (1.005-1.030); UROBILINOGEN URINE 0.2 E.U./dL (0.2-1.0)
[2018-10-22 21:42] LABS: *AMPHETAMINES SCREEN URINE NEGATIVE (NEGATIVE); *BARBITURATES SCREEN URINE NEGATIVE (NEGATIVE); *BENZODIAZEPINES SCREEN URINE NEGATIVE (NEGATIVE); *COCAINE SCREEN URINE NEGATIVE (NEGATIVE); METHADONE URINE SCREEN NEGATIVE (NEGATIVE); OPIATES URINE SCREEN NEGATIVE (NEGATIVE)
[2018-10-22 21:43] LABS: CANNABINOID URINE SCREEN NEGATIVE (NEGATIVE); PHENCYCLIDINE URINE SCREEN NEGATIVE (NEGATIVE)
[2018-10-22 22:17] LABS: CHLORIDE 109 mEq/L (98-107); HEMATOCRIT. 35.3 % (36.0-48.0); HEMOGLOBIN. 11.6 g/dL (12.0-16.0); MEAN CORPUSCULAR HEMOGLOBIN 30.3 pg (28.0-32.0); MEAN CORPUSCULAR VOLUME 92.5 fL (81.0-99.0); MEAN PLATELET VOLUME 8.5 fl (7.4-10.4); PLATELET 220 x1000/uL (130-400); RED BLOOD CELL COUNT 3.82 mill/uL (4.2-5.4); RED CELL DISTRIBUTION WIDTH 15.8 % (11.6-14.6)
[2018-10-22 22:21] LABS: ETHANOL BLOOD < 10 mg/dL
[2018-10-22 22:24] LABS: BETA HYDROXYBUTYRATE 0.4 mMol/L (0.0-0.3)
[2018-10-22 23:25] LABS: PLATELET ESTIMATE NORMAL
[2018-10-23] VITALS (7 sets, daily range): BP systolic 112–135; BP diastolic 42–76
[2018-10-23] MEDS ORDERED: SODIUM CHLORIDE 0.9% 1,000 ML IV ONE ×2 (00:16→04:00)
[2018-10-23] MEDS ORDERED: ONDANSETRON HCL 4MG/2ML INJ IV PRN (04:00)
[2018-10-23] MEDS ORDERED: ACETAMINOPHEN 325MG TABLET PO PRN (04:00)
[2018-10-23 07:04] LABS: HEMATOCRIT. 31.2 % (36.0-48.0); HEMOGLOBIN. 10.4 g/dL (12.0-16.0); MEAN CORPUSCULAR VOLUME 90.2 fL (81.0-99.0); MEAN PLATELET VOLUME 8.6 fl (7.4-10.4); PLATELET 208 x1000/uL (130-400); RED BLOOD CELL COUNT 3.46 mill/uL (4.2-5.4); RED CELL DISTRIBUTION WIDTH 15.5 % (11.6-14.6)
[2018-10-23 08:10] LABS: CHLORIDE 113 mEq/L (98-107)
[2018-10-23 08:24] LABS: LDL CHOLESTEROL 36 mg/dL (5-100)
[2018-10-23 08:25] LABS: HDL CHOLESTEROL 38 mg/dL (40-59)
[2018-10-23] MEDS ORDERED: MEDICATION NOT ON FORMULARY EA (Ascorbate Calcium (Vitamin C) 1 TAB) MT SCH (09:00)
[2018-10-23] MEDS ORDERED: MEDICATION NOT ON FORMULARY EA (Ferrous Sulfate 1 TAB) PO SCH (09:00)
[2018-10-23] MEDS ORDERED: MEDICATION NOT ON FORMULARY EA (Clopidogrel Bisulfate (Plavix) 1 TAB) MT SCH (09:00)
[2018-10-23] MEDS ORDERED: MEDICATION NOT ON FORMULARY EA (Metoprolol Tartrate 1 TAB) PO SCH (09:00)
[2018-10-23] MEDS ORDERED: MEDICATION NOT ON FORMULARY EA (Metformin Hcl 1 TAB) PO SCH (09:00)
[2018-10-23] MEDS ORDERED: MEDICATION NOT ON FORMULARY EA (Famotidine (Pepcid) 1 TAB) MT SCH (09:00)
[2018-10-23] MEDS: FERROUS SULFATE 325MG TABLET PO SCH (10:11)
[2018-10-23] MEDS: ASPIRIN 325MG EC TABLET PO SCH (10:11)
[2018-10-23] MEDS: METOPROLOL TARTRATE 50MG TABLET PO SCH ×2 (10:11→22:03)
[2018-10-23] MEDS: AMLODIPINE 2.5MG TABLET PO SCH (10:12)
[2018-10-23] MEDS: CARVEDILOL 3.125 MG TABLET PO SCH ×2 (10:12→22:03)
[2018-10-23] MEDS: FAMOTIDINE 20MG TABLET PO SCH (10:12)
[2018-10-23] MEDS: CLOPIDOGREL 75MG TABLET PO SCH (10:13)
[2018-10-23] MEDS: ASCORBIC ACID 500 MG TABLET PO SCH ×2 (12:50→22:02)
[2018-10-23] MEDS: ISOSORBIDE MONONITRATE 20MG TABLET PO SCH (13:54)
[2018-10-23 14:04] LABS: PLATELET ESTIMATE NORMAL
[2018-10-23] MEDS ORDERED: ATORVASTATIN CALCIUM 40MG TABLET PO SCH (21:00)
[2018-10-23] MEDS: THIAMINE HCL 100MG TABLET PO SCH (22:02)
[2018-10-23] MEDS: BLOOD SUGAR DIAGNOSTIC STRIP TEST SCH (22:04)
[2018-10-24] VITALS: BP 121/56
[2018-10-24 04:00] VITALS: BP 127/49
[2018-10-24] MEDS: BLOOD SUGAR DIAGNOSTIC STRIP TEST SCH ×2 (06:21→12:58)
[2018-10-24 06:27] LABS: BASOPHILS % 0.3 % (0.0-2.0); EOSINOPHILS % 1.5 % (0.0-5.0); HEMATOCRIT. 30.2 % (36.0-48.0); HEMOGLOBIN. 10.1 g/dL (12.0-16.0); LYMPHOCYTES % 11.9 % (20.0-50.0); MEAN CORPUSCULAR HEMOGLOBIN 30.6 pg (28.0-32.0); MEAN CORPUSCULAR VOLUME 91.3 fL (81.0-99.0); MEAN PLATELET VOLUME 8.6 fl (7.4-10.4); MONOCYTES % 10.3 % (2.0-8.0); PLATELET 195 x1000/uL (130-400); RED CELL DISTRIBUTION WIDTH 15.9 % (11.6-14.6)
[2018-10-24 08:00] VITALS: BP 148/66
[2018-10-24 08:03] LABS: PHOSPHORUS 3.4 mg/dL (2.5-4.9)
[2018-10-24] MEDS: ASCORBIC ACID 500 MG TABLET PO SCH (10:00)
[2018-10-24] MEDS: CARVEDILOL 3.125 MG TABLET PO SCH (10:00)
[2018-10-24] MEDS: THIAMINE HCL 100MG TABLET PO SCH (10:00)
[2018-10-24] MEDS: AMLODIPINE 2.5MG TABLET PO SCH (10:01)
[2018-10-24] MEDS: FAMOTIDINE 20MG TABLET PO SCH (10:01)
[2018-10-24] MEDS: FERROUS SULFATE 325MG TABLET PO SCH (10:01)
[2018-10-24] MEDS: METOPROLOL TARTRATE 50MG TABLET PO SCH (10:01)
[2018-10-24] MEDS: ASPIRIN 325MG EC TABLET PO SCH (10:02)
[2018-10-24] MEDS: CLOPIDOGREL 75MG TABLET PO SCH (10:02)
[2018-10-24 12:00] VITALS: BP 136/70
[2018-10-24] MEDS ORDERED: SODIUM CHLORIDE 0.45% 1,000 ML IV SCH (13:45)
[2018-10-24] MEDS ORDERED: SODIUM CHLORIDE 0.9% 1,000 ML IV ONE (13:45)
[2018-10-24] MEDS ORDERED: INSULIN LISPRO 100 UNITS/ML SUBCUT SCH (13:45)
[2018-10-24] MEDS ORDERED: DEXTROSE 50% WATER 50ML SYRINGE IV PRN (13:45)
[2018-10-24] MEDS: ISOSORBIDE MONONITRATE 20MG TABLET PO SCH (14:13)
[2018-10-24 15:04] VITALS: BP 130/70
[2018-10-24 15:52] VITALS: BP 146/70
[2018-10-24] MEDS ORDERED: BLOOD SUGAR DIAGNOSTIC STRIP TEST SCH (17:40)
== END 2018-10-24 17:10 | disposition short-term general hospital (02) | DRG 682 ==
LOC: ER 19:23 → 7WST 10-23 00:25 → EDBEDREQ 10-23 00:28 → EDBEDREQTM 10-23 00:28 → ENRESERV 10-23 00:58 → 7WST 10-23 03:18
PROVIDERS: ADMIT Internal Medicine Pulmonary Disease; ATTEND Internal Medicine Pulmonary Disease
DX: N17.9 Acute kidney failure, unspecified (principal); G92 Toxic encephalopathy; E87.2 Acidosis; I13.0 Hypertensive heart and chronic kidney disease with heart failure and stage 1 through stage 4 chronic kidney disease, or unspecified chronic kidney disease; E11.65 Type 2 diabetes mellitus with hyperglycemia; D64.9 Anemia, unspecified; E11.22 Type 2 diabetes mellitus with diabetic chronic kidney disease; E11.319 Type 2 diabetes mellitus with unspecified diabetic retinopathy without macular edema; E78.5 Hyperlipidemia, unspecified; F03.90 Unspecified dementia, unspecified severity, without behavioral disturbance, psychotic disturbance, mood disturbance, and anxiety; I25.10 Atherosclerotic heart disease of native coronary artery without angina pectoris; I25.5 Ischemic cardiomyopathy; I48.91 Unspecified atrial fibrillation; I50.9 Heart failure, unspecified; N18.9 Chronic kidney disease, unspecified; Z79.02 Long term (current) use of antithrombotics/antiplatelets; I25.2 Old myocardial infarction; Z79.82 Long term (current) use of aspirin; Z79.84 Long term (current) use of oral hypoglycemic drugs; Z86.73 Personal history of transient ischemic attack (TIA), and cerebral infarction without residual deficits; Z88.0 Allergy status to penicillin; Z90.710 Acquired absence of both cervix and uterus; Z95.5 Presence of coronary angioplasty implant and graft; Z87.891 Personal history of nicotine dependence; Z79.4 Long term (current) use of insulin
CPT/HCPCS: 36415; 36600; 70551; 71045; 80048; 80061; 80305; 80320; 82010; 82140; 82375; 82805; 82962; 83036; 83605; 83735; 84100; 84484; 93005; 93306; 93880; 96361; 96374; 99291; J1815; J2405; J7030; G0480

== ENCOUNTER 2018-12-02 21:21 | Inpatient (IN) | payer MEDICARE, MEDICAID ==
[~2018-12-02] VITALS: Ht 165.1 cm; Wt 76.7 kg
[~2018-12-02 21:21] MED LIST changes: +ATOR40TA70 PO; -CLOP75TA16 MT; +CLOP75TA4 MT; -FAMO-135 MT; +FAMO-135 PO; -FERR325T6 MT; +FERR325T6 PO
[2018-12-02 22:08] LABS: CLARITY URINE TURBID (CLEAR); COLOR URINE YELLOW (YELLOW); KETONES URINE NEGATIVE (NEGATIVE); LEUKOCYTE ESTERASE URINE 3+ (NEGATIVE); NITRITE URINE NEGATIVE (NEGATIVE); OCCULT BLOOD URINE 1+ (NEGATIVE); PH URINE 8.5 (4.5-8.0); PROTEIN URINE 1+ (NEGATIVE); SPECIFIC GRAVITY URINE 1.017 (1.005-1.030)
[2018-12-02 23:59] LABS: BASOPHILS % 0.6 % (0.0-2.0); EOSINOPHILS % 2.4 % (0.0-5.0); HEMATOCRIT. 30.3 % (36.0-48.0); HEMOGLOBIN. 10.3 g/dL (12.0-16.0); LYMPHOCYTES % 13.5 % (20.0-50.0); MEAN CORPUSCULAR HEMOGLOBIN 31.2 pg (28.0-32.0); MEAN CORPUSCULAR VOLUME 92.1 fL (81.0-99.0); MEAN PLATELET VOLUME 7.1 fl (7.4-10.4); NEUTROPHILS % 69.5 % (40.0-76.0); PLATELET 253 x1000/uL (130-400); RED BLOOD CELL COUNT 3.29 mill/uL (4.2-5.4); RED CELL DISTRIBUTION WIDTH 17.3 % (11.6-14.6)
[2018-12-03] VITALS (7 sets, daily range): BP systolic 124–184; BP diastolic 54–80
[2018-12-03 00:06] LABS: CHLORIDE 108 mEq/L (98-107)
[2018-12-03 00:10] LABS: ETHANOL BLOOD < 10 mg/dL
[2018-12-03 00:15] LABS: CREATINE KINASE 65 IU/L (26-192)
[2018-12-03] MEDS ORDERED: CEFTRIAXONE SODIUM 1 G/VIAL IM SCH (00:45)
[2018-12-03] MEDS ORDERED: ASPIRIN 300MG SUPP PR SCH (00:45)
[2018-12-03] MEDS ORDERED: TRAV2.5D OP (05:16)
[2018-12-03] MEDS ORDERED: INSLIS SUBCUT (05:21)
[2018-12-03] MEDS ORDERED: ERGO500013 PO (05:23)
[2018-12-03] MEDS ORDERED: INSU100I28 SQ (05:25)
[2018-12-03] MEDS ORDERED: AMIN30LI2 PO (05:30)
[2018-12-03] MEDS ORDERED: ACETAMINOPHEN 325MG TABLET PO PRN (06:00)
[2018-12-03] MEDS ORDERED: SODIUM CHLORIDE 0.45% 1,000 ML IV SCH (06:00)
[2018-12-03] MEDS ORDERED: CLONIDINE 0.1MG TABLET PO PRN (06:00)
[2018-12-03] MEDS ORDERED: ONDANSETRON HCL 4MG/2ML INJ IV PRN (06:00)
[2018-12-03] MEDS ORDERED: DEXTROSE 50% WATER 50ML SYRINGE IV PRN (06:00)
[2018-12-03] MEDS: BLOOD SUGAR DIAGNOSTIC STRIP TEST SCH ×4 (06:36→21:24)
[2018-12-03] MEDS: PANTOPRAZOLE 40MG DR TABLET PO SCH (07:20)
[2018-12-03] MEDS: INSULIN LISPRO 100 UNITS/ML SUBCUT SCH ×4 (08:45→21:37)
[2018-12-03] MEDS: ENOXAPARIN 30MG/0.3ML SYR SUBCUT SCH (08:46)
[2018-12-03] MEDS: ASPIRIN 81MG TABLET PO SCH (08:57)
[2018-12-03] MEDS ORDERED: PANTOPRAZOLE SODIUM 40 MG/VIAL IV SCH (09:00)
[2018-12-03 09:18] LABS: BASOPHILS % 0.6 % (0.0-2.0); HEMATOCRIT. 29.5 % (36.0-48.0); HEMOGLOBIN. 9.8 g/dL (12.0-16.0); LYMPHOCYTES % 14.3 % (20.0-50.0); MEAN CORPUSCULAR HEMOGLOBIN 30.9 pg (28.0-32.0); MEAN CORPUSCULAR VOLUME 92.7 fL (81.0-99.0); MEAN PLATELET VOLUME 7.9 fl (7.4-10.4); MONOCYTES % 12.5 % (2.0-8.0); NEUTROPHILS % 70.6 % (40.0-76.0); PLATELET 245 x1000/uL (130-400); RED BLOOD CELL COUNT 3.18 mill/uL (4.2-5.4); RED CELL DISTRIBUTION WIDTH 16.7 % (11.6-14.6)
[2018-12-03] MEDS: HYDRALAZINE 20MG/ML VIAL IV PRN ×2 (09:22→17:49)
[2018-12-03] MEDS: DEXT 5%/0.45% NACL 1000ML 1,000 ML IV SCH ×2 (09:22→22:35)
[2018-12-03 10:02] LABS: CHLORIDE 109 mEq/L (98-107)
[2018-12-03 10:13] LABS: T4 FREE 1.55 ng/dL (0.76-1.46)
[2018-12-03 14:38] LABS: BG BASE EXCESS 0.6 mmol/L (-2.0-2.0); BG CARBOXYHEMOGLOBIN 0.4 % (0.5-1.5); BG FRACTION INSPIRED OXYGEN 21; BG HCO3 ACT 23.9 mmol/L (22.0-26.0); BG METHEMOGLOBIN 0.2 % (0.0-1.5); BG OXYHEMOGLOBIN 95.4 % (94.0-97.0); BG PCO2 33.8 mmHg (35.0-45.0); BG PH 7.468 (7.350-7.450); BG PO2 83.7 mmHg (75.0-100.0); BG SAMPLE SITE RIGHT BRACHIAL; BG TOTAL HEMOGLOBIN 11.4 g/dL (12.0-18.0); BG VENT MODE ROOM AIR
[2018-12-04] MEDS ORDERED: CEFTRIAXONE 1 G PREMIX 50 ML IV SCH (01:00)
[2018-12-04 04:00] VITALS: BP 139/88
[2018-12-04] MEDS: PANTOPRAZOLE 40MG DR TABLET PO SCH (06:41)
[2018-12-04 06:49] LABS: HEMATOCRIT 31.9 % (36.0-48.0); HEMOGLOBIN 10.5 g/dL (12.0-16.0); MEAN CORPUSCULAR HEMOGLOBIN 30.8 pg (28.0-32.0); MEAN CORPUSCULAR VOLUME 93.6 fL (81.0-99.0); PLATELET 263 x1000/uL (130-400); RED BLOOD CELL COUNT 3.41 mill/uL (4.2-5.4); RED CELL DISTRIBUTION WIDTH 17.4 % (11.6-14.6)
[2018-12-04 07:13] LABS: INR 1.1; PROTHROMBIN TIME 10.8 sec (9.6-11.0)
[2018-12-04] MEDS: BLOOD SUGAR DIAGNOSTIC STRIP TEST SCH ×3 (07:30→17:20)
[2018-12-04 08:48] VITALS: BP 142/61
[2018-12-04] MEDS: ASPIRIN 81MG TABLET PO SCH (09:01)
[2018-12-04] MEDS: ENOXAPARIN 30MG/0.3ML SYR SUBCUT SCH (09:01)
[2018-12-04] MEDS: INSULIN LISPRO 100 UNITS/ML SUBCUT SCH ×3 (09:13→18:41)
[2018-12-04 12:55] VITALS: BP 150/66
[2018-12-04 16:28] VITALS: BP 164/74
[2018-12-04 20:00] VITALS: BP 159/74
[2018-12-04 20:01] VITALS: BP 159/74
[2018-12-05] MEDS ORDERED: FAMOTIDINE 20MG TABLET PO SCH (09:00)
[2018-12-05] MEDS ORDERED: ENOXAPARIN 40MG/0.4ML SYR SUBCUT SCH (09:00)
== END 2018-12-04 20:30 | disposition short-term general hospital (02) | DRG 70 ==
LOC: ER 21:21 → 6WST 12-03 01:21
PROVIDERS: ADMIT Internal Medicine; ATTEND Internal Medicine
DX: G93.41 Metabolic encephalopathy (principal); I50.43 Acute on chronic combined systolic (congestive) and diastolic (congestive) heart failure; N39.0 Urinary tract infection, site not specified; I13.0 Hypertensive heart and chronic kidney disease with heart failure and stage 1 through stage 4 chronic kidney disease, or unspecified chronic kidney disease; D68.59 Other primary thrombophilia; E44.0 Moderate protein-calorie malnutrition; I25.10 Atherosclerotic heart disease of native coronary artery without angina pectoris; I25.2 Old myocardial infarction; D63.8 Anemia in other chronic diseases classified elsewhere; E11.22 Type 2 diabetes mellitus with diabetic chronic kidney disease; F03.90 Unspecified dementia, unspecified severity, without behavioral disturbance, psychotic disturbance, mood disturbance, and anxiety; L89.90 Pressure ulcer of unspecified site, unspecified stage; M85.80 Other specified disorders of bone density and structure, unspecified site; N18.9 Chronic kidney disease, unspecified; R13.10 Dysphagia, unspecified; R62.7 Adult failure to thrive; Z86.73 Personal history of transient ischemic attack (TIA), and cerebral infarction without residual deficits; Z90.710 Acquired absence of both cervix and uterus; Z88.0 Allergy status to penicillin; Z79.82 Long term (current) use of aspirin; Z79.84 Long term (current) use of oral hypoglycemic drugs; Z79.899 Other long term (current) drug therapy
CPT/HCPCS: 36415; 36600; 71045; 80048; 80320; 82140; 82375; 82550; 82805; 82962; 83036; 83605; 84439; 84443; 84484; 85027; 87077; 87186; 92610; 93005; 93306; 96372; 97162; 99285; A6261; J0360; J0696; J1650; J1815; J2405; G0480